=== PATIENT | male | born 1955 | race African-American/Black ===

== ENCOUNTER 2023-10-26 11:01 | Emergency (ER) | payer MEDICARE, OTHER ==
[~2023-10-26] VITALS: Ht 177.8 cm; Wt 100.0 kg
[~2023-10-26 11:01] MED LIST: AMLO5TAB88 PO; ASPI-1406 PO; BUSP10TA3 PO; CLON1PAT10 TD; HALO5TAB PO; LISI10TA26 PO; SIMV-43 PO
[2023-10-26 11:16] VITALS: O2SAT 98
[2023-10-26 11:48] LABS: BASOPHILS % 0.6 % (0.0-2.0); DIFFERENTIAL COMMENT 0; EOSINOPHILS % 0.7 % (0.0-5.0); HEMATOCRIT. 44.6 % (42.0-52.0); HEMOGLOBIN. 14.8 g/dL (14.0-18.0); LYMPHOCYTES % 12.4 % (20.0-50.0); MEAN CORPUSCULAR HGB CONC 33.1 g/dL (31.0-37.0); MEAN CORPUSCULAR VOLUME 78.6 fL (80.0-94.0); MEAN PLATELET VOLUME 8.7 fl (7.4-10.4); MONOCYTES % 8.9 % (2.0-8.0); NEUTROPHILS % 77.4 % (40.0-76.0); PLATELET 174 x1000/uL (130-400); RED BLOOD CELL COUNT 5.68 mill/uL (4.7-6.1); RED CELL DISTRIBUTION WIDTH 14.6 % (11.6-14.6); WHITE BLOOD COUNT 8.2 x1000/uL (4.5-11.0)
[2023-10-26 12:00] LABS: PARTIAL THROMBOPLASTIN TIME 28.9 sec (23.4-31.0); PROTHROMBIN TIME 10.6 sec (9.6-11.0)
[2023-10-26 12:09] LABS: ALANINE AMINOTRANSFERASE 37 IU/L (10-49); ALBUMIN 4.1 g/dL (3.2-4.8); ASPARTATE AMINOTRANSFERASE 63 IU/L (<34); BILIRUBIN TOTAL 0.5 mg/dL (0.1-1.0); CALCIUM 9.6 mg/dL (8.7-10.4); CARBON DIOXIDE 24 mEq/L (21-32); CHLORIDE 109 mEq/L (98-107); GLUCOSE 124 mg/dL (70-105); POTASSIUM 3.5 mEq/L (3.5-5.1); PROTEIN TOTAL 7.3 g/dL (6.0-8.3); SODIUM 142 mEq/L (136-145); UREA NITROGEN BLOOD 16 mg/dL (9-23)
[2023-10-26 20:11] LABS: TROPONIN I HIGH SENSITIVITY 10 ng/L (3.0-53)
[2023-10-26] MEDS ORDERED: ASPIRIN 325MG EC TABLET PO ONE (20:30)
[2023-10-26 21:12] VITALS: TEMP 98.3
[2023-10-27 02:00] VITALS: BP 167/92; PULSE 98; RESP 20
== END 2023-10-27 02:41 | disposition short-term general hospital (02) ==
LOC: ER 11:01 → CANBEDREQ 10-27 01:09 → ER 10-27 02:41
DX: R41.82 Altered mental status, unspecified (principal); R29.810 Facial weakness; E78.00 Pure hypercholesterolemia, unspecified; I10 Essential (primary) hypertension; F19.90 Other psychoactive substance use, unspecified, uncomplicated; Z20.822 Contact with and (suspected) exposure to COVID-19
CPT/HCPCS: 36415; 71045; 80053; 82962; 84484; 85025; 87426; 93005; 99285